=== PATIENT | male | born 1950 ===

== ENCOUNTER 2019-01-19 13:45 | Outpatient (CLI) | payer MEDICARE | END 2019-01-19 13:46 | disposition home or self-care (01) | LOC: C.MRIC 13:46 | DX: R55 Syncope and collapse (principal); M51.16 Intervertebral disc disorders with radiculopathy, lumbar region; R94.31 Abnormal electrocardiogram [ECG] [EKG]; M17.0 Bilateral primary osteoarthritis of knee ==

== ENCOUNTER 2019-02-19 07:28 | Outpatient (CLI) | payer MEDICARE | END 2019-02-19 07:29 | disposition home or self-care (01) | LOC: C.CARD 07:28 ==